=== PATIENT | female | born 1980 | race Caucasian/White ===

== ENCOUNTER → 2020-12-17 | Outpatient (REF) ==
[2014-07-18 22:00] VITALS: BP 121/70
== END ==
LOC: LAB 09:21
DX: Z00.00 Encounter for general adult medical examination without abnormal findings (principal); E78.5 Hyperlipidemia, unspecified; R05 Cough

== ENCOUNTER → 2020-12-17 | Outpatient (CLI) | payer BC ==
[2014-07-18 22:00] VITALS: BP 121/70
== END ==
LOC: RAD 09:20
DX: R05 Cough (principal)